=== PATIENT | female | born 1950 | race Caucasian/White ===

== ENCOUNTER → 2016-08-19 | Outpatient (CLI) | payer MEDICARE, OTHER ==
[2015-09-13 04:00] VITALS: BP 134/88
[~2016-08-19] MED LIST: CA C1TAB35 PO; CALC-109 PO; CALC600T4 PO; CELE200C PO; CINN500C2 PO; FERR-26 PO; LACT1CAP8 PO; MAGN400C PO; MELO15TA23 PO; METR45CR2 TP; MULT-246 PO; OMEG1CAP27 PO; OMEG500C3 PO; OMEP40CA2 PO; OXYC-323 PO; POTA20TA12 PO; RANI150T2 PO; SIMV20TA3 PO; WARF2TAB7 PO
[2016-08-19 13:20] LABS: BASO # 0.1 x10^3/uL (0.0-0.2); BASO % 1 % (0-3); EOS % 1 % (0-3); HEMATOCRIT 42.3 % (36.0-47.0); HEMOGLOBIN 14.3 g/dL (12.0-15.5); LYMPH % 23 % (24-48); MEAN CORPUSCULAR HEMOGLOBIN 32 pg (25-35); MEAN CORPUSCULAR HGB CONC 34 g/dL (31-37); MEAN CORPUSCULAR VOLUME 96 fL (79-100); MONO % 15 % (0-9); NEUT % 61 % (31-73); PLATELET COUNT 246 x10^3/uL (140-400); RED BLOOD COUNT 4.41 x10^6/uL (3.50-5.40); RED CELL DISTRIBUTION WIDTH 14.3 % (11.5-14.5); WHITE BLOOD COUNT 8.7 x10^3/uL (4.0-11.0)
--- NOTE | 2016-08-19 13:24 | EKG ---
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
[2016-08-19 13:32] LABS: INR 0.9 (0.8-1.1)
[2016-08-19 13:46] LABS: ALBUMIN 3.3 g/dL (3.4-5.0); CALCIUM 9.1 mg/dL (8.5-10.1); CREATININE 0.5 mg/dL (0.6-1.0); GFR 122.7; POTASSIUM 3.7 mmol/L (3.5-5.1)
--- NOTE | 2016-08-19 14:20 | RAD ---
Indication preop. Anticipated left knee replacement. PA and lateral views of the chest were obtained and are compared to a study 2 years ago. Heart size is unchanged. Slightly tortuous thoracic aorta is noted appearing similar. There is no acute parenchymal infiltrate. There has not been a significant change. Hiatus hernia is noted. There has been some increase in wedging of mid and lower thoracic vertebral body segments relative to the previous exam and there has been slight increase in the patient's kyphosis. Mild scoliosis is noted. IMPRESSION: Chronic changes in the chest. No acute finding seen
[2016-08-19 14:32] LABS: BILIRUBIN,URINE NEGATIVE (NEG); GLUCOSE,URINE NEGATIVE (NEG); NITRITE,URINE NEGATIVE (NEG); PROTEIN,URINE NEGATIVE (NEG-TRACE); UROBILINOGEN,URINE 0.2 mg/dL (0.2 mg/dL)
[2016-08-19 14:50] LABS: BACTERIA,URINE FEW /HPF (0-FEW); RBC,URINE 0 /HPF (0-2); WBC,URINE 0 /HPF (0-4)
[2016-08-19 14:51] LABS: SQUAMOUS EPITHELIAL CELL,UR OCC /LPF
== END | disposition home or self-care (01) ==
LOC: SURGPAT 12:40
PROVIDERS: ATTEND Orthopaedic Surgery
DX: Z01.818 Encounter for other preprocedural examination (principal)
CPT/HCPCS: 36415; 71020; 80048; 81001; 82040; 83036; 85027; 85610; 85651; 85730; 87086; 87641; 93005

== ENCOUNTER 2016-09-09 07:10 | Inpatient (IN) | payer MEDICARE, OTHER ==
--- NOTE | 2016-09-08 11:35 | PDOC1 ---
History and Physical Date of Admission Date of Admission DATE: 09/09/16 Identification/Chief Complaint Chief Complaint left knee osteoarthritis pain Problems: Source Source: Chart review History of Present Illness History of Present Illness Lisette is a 66 year old female who presents today for management of her left knee osteoarthritis. She has previously had her right knee replaced in August of 2014, which is doing very well. Since her last visit, she has been going to physical therapy, which she states helped her range of motion and strength. However, she is still very interested in surgery as she says her right knee is much better than her left and she knows it will only get worse over time. She has been exercising regularly. Also, she states that after surgery she does not want Percocet as that gave her bowel problems for about a year afterwards. She prefers Tylenol. Past Medical History Cardiovascular: No pertinent hx Pulmonary: No pertinent hx GI: No pertinent hx Past Surgical History Past Surgical History: Total knee replacement (right - 09/12/14), Hysterectomy Family History Family History: No Significant Social History Smoke: No ALCOHOL: none Drugs: None Current Medications Current Medications Active Scripts Active Reported Probiotic (Lactobacillus Combo No.11) 1 Each Cap.sprink 1 Each PO DAILY Meloxicam 15 Mg Tablet 1 Tab PO DAILY Ranitidine Hcl 150 Mg Tablet 1 Tab PO BID Calcium Citrate Plus Tablet (Ca Citrate/Mgox/Vit D3/B6/Min) 1 Each Tablet 1 Each PO DAILY Multi-Vitamin Daily (Multivitamin) 1 Each Tablet 1 Each PO DAILY Fish Oil 1,000 Mg Softgel ([place]-3 Fatty Acids/Fish Oil) 1 Each Capsule 1 Each PO DAILY Cinnamon (Cinnamon Bark) 500 Mg Capsule 500 Mg PO DAILY Metrocream (Metronidazole) 45 Gm Cream..g. 45 Gm TP DAILY Potassium Chloride 20 Meq Tab.er.prt 20 Meq PO DAILY Simvastatin 20 Mg Tablet 20 Mg PO HS Allergies Allergies: Coded Allergies: Penicillins (Verified Allergy, Intermediate, RASH, 08/19/16) erythromycin base (Verified Allergy, Intermediate, RASH, 08/19/16) influenza virus vaccine, specific (Verified Allergy, Intermediate, Nausea and Vomiting, 08/19/16) nickel (Verified Allergy, Intermediate, Rash, 08/19/16) Physical Exam General: Alert, Oriented X3, Cooperative, No acute distress HEENT: Atraumatic, EOMI Lungs: Normal air movement Heart: RRR Abdomen: Soft Extremities: No clubbing, No cyanosis, Normal pulses, Other (LEFT KNEE: shows her mildly antalgic gait. There is normal alignment. No masses. No detectable effusion. Tenderness on the joint lines. Range of motion is 0-120 degrees. There is crepitus with range of motion, and pain at the extremes of motion. The knee is stable to varus and valgus stress without subluxation or laxity. Muscle strength is normal (5/5) for quadriceps and hamstrings, and muscle tone is normal. The skin is normal with no scars, rashes, lesions or ulcers. Light touch sensation is intact. No edema and no varicosities. Dorsalis pedis pulse is intact and capillary refill is normal. ) Skin: No rashes, No breakdown, No significant lesion Neuro: Normal speech, Sensation intact Psych/Mental Status: Mental status NL, Mood NL VTE Prophylaxis Ordered VTE Prophylaxis Devices: Yes VTE Pharmacological Prophylaxi: Yes Assessment/Plan Assessment/Plan Left knee osteoarthritis. She is 66 years old. She has osteoarthritis of the left knee. She has seen improvement with physical therapy for her range of motion. She is pleased with her right total knee arthroplasty. She is very active. We discussed whether she should proceed with left total knee arthroplasty versus delay surgery. At this point, her health is good, she is 66 years old, but she has symptomatic left knee osteoarthritis. There were be a benefit to proceed now, in that her health is not likely to improve if we wait several more years to consider knee replacement. The left knee osteoarthritis is not likely to improve over time, and arthritis is predicted to worsen over the years. I think it would be to her benefit to proceed with left total knee arthroplasty now while she is healthy and strong, with many years to benefit from the knee arthroplasty, with low risk of need for revision. We discussed the potential risks of infection, neurovascular injury, bleeding, blood clots, need for revision surgery, or other potential surgical or anesthetic complications. All of her questions about surgery were answered and she desires to proceed. On her other knee. She has Oxinium due to metal sensitivity. Her other knee has Legion Oxinium size 2 femur, size 2 tibia, and 29 mm patella. She requests Tylenol for postoperative pain due to bowel problems with Percocet. She would like to proceed. We will request medical clearance from her PCP, Ellyn Shaffer. PRUDENCE RODRIGUEZ Sep 08, 2016 11:34
[~2016-09-09] VITALS: Ht 147.3 cm; Wt 65.8 kg
[2016-09-09] VITALS (8 sets, daily range): BP systolic 92–126; BP diastolic 59–77
[~2016-09-09 07:10] MED LIST changes: +CLINDAMYCIN 600MG PREMIX 50 ML IV PRN; +HYDROcodone/APAP 7.5/325MG 1 TAB TABLET PO PRN; +HYDROmorphone 2 MG/ML VIAL IV PRN; +IV RINGERS,LACTATED 1000ML 1,000 ML IV SCH; +LIDOCAINE 1% 1 ML SYRINGE. ID PRN; +MELOXICAM 7.5 MG TABLET PO PRN; +MORPHINE SULFATE 5 MG, KETOROLAC TROMETHAMINE 30 MG, ROPIVacaine 0.5% PF 60 ML, EPINEPH... INT ART ONE; +ONDANSETRON PF 4 MG/2 ML VIAL. IV PRN; +PROCHLORPERAZINE 10 MG/2 ML VIAL. IV PRN; +TRANEXAMIC ACID 1,000 MG in IV NS 50ML -- 1ST BAG INJ ONE; +fentaNYL PF VIAL 100 MCG/2 ML VIAL IV PRN
[2016-09-09] MEDS ORDERED: LISI10TA2 PO (07:58)
[2016-09-09] MEDS ORDERED: CLINDAMYCIN PREMIX 600 MG/50 ML BAG. IV ONE (08:00)
[2016-09-09] MEDS ORDERED: TRANEXAMIC ACID 1,000 MG in IV NS 50ML -- 2ND BAG INJ ONE (08:00)
[2016-09-09] MEDS ORDERED: ACETAMINOPHEN 500 MG TABLET PO ONE (08:14)
[2016-09-09] MEDS ORDERED: fentaNYL PF VIAL 250 MCG/5 ML VIAL ONE (08:19)
[2016-09-09] MEDS ORDERED: LIDOCAINE 2% PF Vial for OR 5 ML VIAL. ONE (08:20)
[2016-09-09] MEDS ORDERED: PROPOFOL 20 ML IV ONE (08:20)
[2016-09-09] MEDS ORDERED: DEXAMETHASONE SOD PHOS 20 MG/5 ML VIAL. ONE (08:20)
[2016-09-09] MEDS ORDERED: ONDANSETRON PF 4 MG/2 ML VIAL. ONE (08:20)
[2016-09-09] MEDS ORDERED: SCOPOLAMINE 1.5MG PATCH. TD ONE ×2 (08:26→08:30)
[2016-09-09 09:08] LABS: PROTHROMBIN TIME PATIENT 12.4 SEC (11.7-14.0)
[2016-09-09] MEDS ORDERED: VANCOMYCIN 1 GM VIAL. ONE (09:28)
[2016-09-09] MEDS ORDERED: TOBRAMYCIN POWDER 1.2 GM VIAL. ONE (09:29)
[2016-09-09] MEDS ORDERED: SEVOFLURANE > 120 MINUTES. IH ONE (10:13)
[2016-09-09] MEDS ORDERED: PHENYLEPHRINE in 0.9% NACL PF 1 MG/10 ML DISP.SYRIN. IV ONE (10:13)
[2016-09-09] MEDS ORDERED: ceFAZolin 2GM PREMIX 2 GM/50 ML BAG IV ONE (10:15)
[2016-09-09] MEDS ORDERED: ePHEDrine PF IN SALINE 50 MG/5 ML DISP.SYRIN IV ONE (10:24)
--- NOTE | 2016-09-09 12:02 | PDOC4 ---
Operative Note Operative Note Date of Procedure: September 09, 2016 Pre-Op Diagnosis: Osteoarthritis left knee Post-Op Diagnosis: Osteoarthritis left knee Procedure: left total knee arthroplasty Surgeon: Dominga Hidalgo MD Carton Machine Operator: Kerry Yoo PA-C Anesthesia: General EBL: 100 mL Specimens Obtained: left knee bone and soft tissue Complications: none Implant Company: [employer] Drains: Hemovac plus pain catheter Tourniquet time: 41 Minutes Tourniquet Pressure: 350 mm Hg Indications for Procedure: Arthritis pain unrelieved by nonoperative management. Findings: Severe osteoarthritis with bone on bone contact medially Implants used: Size 2 left bicruciate stabilized Journey II BCS Oxinium femoral component, size 3 left Journey nonporous tibial baseplate, size 3-4 10 mm left Journey II BCS XLPE articular insert, 32 mm oval Mikala II resurfacing patellar component Procedure in Detail: The patient was identified in the preoperative holding area, and the correct left extremity was marked by me. The patient was taken to the operating room where the patient was anesthetized by the Department of Anesthesia. Preoperative antibiotics were given intravenously. Tranexamic acid 1 g was given intravenously for intraoperative hemostasis. A "time-out" procedure was performed. The patient was positioned supine on the operative table with a tourniquet on the upper thigh. The limb was thoroughly prepped and draped in sterile fashion. An impervious stockinet and adhesive drape were used such that the skin was entirely covered. An Gray leg anne was used. The operating team wore personal exhaust-ventilated hoods. The tourniquet was inflated to 350 mm Hg. A midline skin incision was made with a scalpel using the patella and tibial tubercle as landmarks. Electrocautery was used for hemostasis. My assistant professor of drama used rake retractors. A medial parapatellar arthrotomy incision was used with extension into the distal quadriceps tendon. The patella was retracted laterally and Hohmann retractors were now used by my assistant professor of drama. Excess synovium, the menisci, and the cruciate ligaments were resected sharply. The patella was assessed and excess synovium and osteophytes around the patellar articulation were removed. The patella was measured with a caliper, cut freehand with a saw using caliper measurements, sized, and then drilled for an oval three-pegged patella component. Periarticular injection was used in the suprapatellar pouch and distal quadriceps muscle. Amanda's line was assessed on the femur. An intra-medullary 5 degree cutting guide was pinned to the femur, and a distal femoral cut was made with an oscillating saw. An additional 2 mm resection was used due to the deep femoral sulcus, and deficient condyle. My assistant professor of drama held Hohmann retractors and an [facility] retractor to protect the medial and lateral collateral ligaments, the patellar tendon, the skin and the other soft tissues. An anterior referencing guide was applied with external rotation of 3 degrees to match [place] line. A 5-in-1 Journey II cutting guide was then applied and pinned to the femur. The posterior, anterior, and all chamfer cuts were made with the oscillating saw. An extramedullary guide was pinned to the tibia and rotational alignment and the planned resection thickness assessed. An external alignment amber was used to verify the planned cut in the varus-valgus plane and regarding posterior slope referencing the tibial tubercle, the tibial shaft, the ankle joint, and the second metatarsal. The upper tibia was cut made with an oscillating saw. My assistant professor of drama held Hohmann retractors and a posterior cruciate ligament retractor to protect the medial and lateral collateral ligaments, the patellar tendon, the skin, the peroneal nerve and the other soft tissues. The upper tibia was sized with a trial baseplate. The posterior compartment was cleared of osteophytes and loose bodies, and posterior capsule released. Sherita-articular injection was used in the posterior compartment. The box cut for a posterior stabilized component was made. A preliminary reduction was performed with a trial femur, trial tibial baseplate and trial polyethylene. Soft-tissue balancing was now performed, and extension and rotation of the alignments was checked using a guide amber in the tibial trial and a guide pin in the femur. No additional releases were required. The stability was assessed using different thicknesses of tibial articular surface to find satisfactory stability and good range of motion. The rotation of the tibial component was marked on the upper tibia. Final trial reduction was now performed verifying patella tracking and tibiofemoral stability and alignment. The tibia preparation was completed with a drill, saw, and fin punch at the previously noted rotation. The final implants were verified and opened. Outer gloves were changed by the operating team. The bone cuts were washed thoroughly with the Localbase InterPulse device and dried. Two packages of Rally HV bone cement were mixed in powdered form with 1 gm of Vancomycin and 1.2 g tobramycin , then vacuum-mixed with the monomer, and placed into a cement gun. The cut surfaces of the bone were thoroughly washed with Interpulse saline, and then dried with Cloud-tip suction and with laparotomy sponges for cement interdigitation. The final components were cemented into place. The knee was kept at full extension while the cement hardened, and excess cement was removed. Tranexamic acid 1 g was redosed intravenously for additional intraoperative hemostasis. A final periarticular injection was used for pain relief. The tourniquet was released, and electrocautery was used for hemostasis. A final check of [id number] and stability was made, and the polyethylene implant final size was chosen. The polyethylene implant was secured to the tibial baseplate, and the knee was reduced a final time. Thorough irrigation was used. Hemovac and pain catheter were used.The arthrotomy was closed with interrupted [id number] #1 PDS suture. The arthrotomy incision was then run with #1 STRATAFIX Symmetric PDS Plus Knotless suture. The subcutaneous tissues were closed with #2-0 Vicryl by my assistant professor of drama. The skin was reapproximated with STRATAFIX Spiral MONOCRYL Plus Knotless suture by my assistant professor of drama. The skin incision was then covered and reinforced with Dermabond Prineo mesh skin closure dressing. A bulky sterile gauze dressing was applied. Needle and sponge counts were correct. DOMINGA HIDALGO MD Sep 09, 2016 12:02
[2016-09-09] MEDS ORDERED: PROCHLORPERAZINE 5 MG TABLET. PO PRN (12:15)
[2016-09-09] MEDS ORDERED: oxyCODONE/APAP 7.5/325 1 TAB TABLET PO PRN (12:15)
[2016-09-09] MEDS ORDERED: 0.9 % SODIUM CHLORIDE 10 ML DISP.SYRIN. IV PRN (12:15)
[2016-09-09] MEDS ORDERED: traMADol 50 MG TABLET PO PRN ×2 (12:15)
[2016-09-09] MEDS ORDERED: oxyCODONE/APAP 5/325 1 TAB TABLET PO PRN (12:15)
[2016-09-09] MEDS ORDERED: MORPHINE SULFATE 2 MG/ML DISP.SYRIN. IV PRN (12:15)
[2016-09-09] MEDS ORDERED: DEXTROSE 50% 25 GM / 50ML DISP.SYRIN. IV PRN (12:15)
[2016-09-09] MEDS ORDERED: HYDROcodone/APAP 10/325 1 TAB TABLET PO PRN (12:15)
[2016-09-09] MEDS ORDERED: PROCHLORPERAZINE 10 MG/2 ML VIAL. IV PRN (12:15)
[2016-09-09] MEDS ORDERED: METOCLOPRAMIDE HCL 10 MG/2 ML VIAL. IV PRN (12:15)
[2016-09-09] MEDS ORDERED: ZOLPIDEM 5 MG TABLET. PO PRN (12:15)
[2016-09-09] MEDS ORDERED: MORPHINE SULFATE 10 MG/ML VIAL. IV PRN (12:15)
[2016-09-09] MEDS ORDERED: diphenhydrAMINE 50 MG/ML VIAL IV PRN (12:15)
[2016-09-09] MEDS ORDERED: ACETAMINOPHEN 325 MG TABLET. PO PRN (12:15)
[2016-09-09] MEDS ORDERED: fentaNYL PF VIAL 100 MCG/2 ML VIAL IV PRN ×2 (12:15)
[2016-09-09] MEDS ORDERED: MORPHINE SULFATE 4 MG/ML DISP.SYRIN. IV PRN ×2 (12:15)
[2016-09-09] MEDS: fentaNYL PF VIAL 100 MCG/2 ML VIAL IV PRN ×2 (12:29→12:36)
[2016-09-09] MEDS: MORPHINE SULFATE 2 MG/ML DISP.SYRIN. IV PRN ×2 (12:46→13:00)
--- NOTE | 2016-09-09 12:55 | RAD ---
Left knee radiograph 09/09/2016 at 1245 hours Indication: Postoperative evaluation of the left knee. Comparison: None available Technique: AP and lateral views of the left knee are provided. Findings: A left total knee arthroplasty is identified with femoral and tibial components in expected alignment. No periprosthetic lucency is identified. Subcutaneous gas and soft tissue swelling compatible with recent postoperative state. Drainage catheter is identified overlying the lateral knee. No acute fracture or dislocation. Impression: Left total knee arthroplasty with expected postoperative changes.
[2016-09-09] MEDS: SENNOSIDES/DOCUSATE 8.6/50MG TABLET. PO SCH (14:00)
[2016-09-09] MEDS: POTASSIUM CHLORIDE 20 MEQ TABLET.ER. PO SCH (15:00)
[2016-09-09] MEDS ORDERED: metroNIDAZOLE 0.75% TOPICAL 1 APP TUBE TP SCH (15:00)
[2016-09-09] MEDS: CALCIUM CARB/VIT D3 500/200 TABLET. PO SCH (15:00)
[2016-09-09] MEDS: LISINOPRIL 10 MG TABLET PO SCH (15:00)
[2016-09-09] MEDS: LACTOBACILLUS ACIDOPH & BULGAR 1 TABLET. PO SCH (16:10)
[2016-09-09] MEDS: FERROUS SULFATE 325 MG TABLET. PO SCH (17:00)
[2016-09-09] MEDS: IV DEXTROSE 5 %-0.45 % NACL 1,000 ML IV SCH ×2 (17:08→22:12)
[2016-09-09] MEDS: CALCIUM CARBONATE 500 MG TAB.CHEW PO PRN (19:52)
[2016-09-09] MEDS: FAMOTIDINE 20 MG TABLET. PO SCH (19:52)
[2016-09-09] MEDS: SIMVASTATIN 20 MG TABLET PO SCH (21:16)
[2016-09-09] MEDS: ASPIRIN ENTERIC COATED 325 MG TABLET.DR. PO SCH (21:16)
[2016-09-09] MEDS: HYDROcodone/APAP 7.5/325MG 1 TAB TABLET PO PRN (21:16)
[2016-09-09] MEDS ORDERED: VANCOMYCIN 1 GM in IV NORMAL SALINE 250ML 250 ML IV ONE (23:00)
[2016-09-10 02:57] VITALS: BP 106/65
[2016-09-10] MEDS ORDERED: MAGNESIUM HYDROXIDE 2,400 MG/30 ML ORAL.SUSP. PO PRN (06:00)
[2016-09-10 06:28] VITALS: BP 86/55
[2016-09-10 07:40] VITALS: BP 109/72
[2016-09-10] MEDS: IV DEXTROSE 5 %-0.45 % NACL 1,000 ML IV SCH ×4 (08:12→18:50)
[2016-09-10] MEDS: FERROUS SULFATE 325 MG TABLET. PO SCH ×2 (08:39→17:14)
[2016-09-10] MEDS: LACTOBACILLUS ACIDOPH & BULGAR 1 TABLET. PO SCH (08:39)
[2016-09-10] MEDS: ASPIRIN ENTERIC COATED 325 MG TABLET.DR. PO SCH ×2 (08:40→20:47)
[2016-09-10] MEDS: SENNOSIDES/DOCUSATE 8.6/50MG TABLET. PO SCH (08:40)
[2016-09-10] MEDS: CALCIUM CARB/VIT D3 500/200 TABLET. PO SCH (08:40)
[2016-09-10] MEDS: FAMOTIDINE 20 MG TABLET. PO SCH ×2 (08:40→20:47)
[2016-09-10] MEDS: MULTIVITAMIN with MINERAL TABLET. PO SCH (08:40)
[2016-09-10] MEDS: MELOXICAM 7.5 MG TABLET PO SCH (08:40)
[2016-09-10] MEDS: POTASSIUM CHLORIDE 20 MEQ TABLET.ER. PO SCH (08:40)
[2016-09-10] MEDS: HYDROcodone/APAP 7.5/325MG 1 TAB TABLET PO PRN ×3 (08:41→17:16)
[2016-09-10] MEDS: metroNIDAZOLE 0.75% TOPICAL 1 APP TUBE TP SCH (08:46)
[2016-09-10] MEDS ORDERED: NON FORMULARY ITEM (Cinnamon Bark (Cinnamon) 500 MG) PO SCH (09:00)
[2016-09-10] MEDS: LISINOPRIL 10 MG TABLET PO SCH (09:00)
--- NOTE | 2016-09-10 10:11 | PDOC ---
PROGRESS NOTES Subjective Subjective No complaints. Pt states she feels great and would like to go home tomorrow. Objective Vital Signs Vital Signs Date Time Temp Pulse Resp B/P (MAP) Pulse Ox O2 Delivery O2 Flow Rate FiO2 09/10/16 08:41 16 Room Air 09/10/16 07:40 78 109/72 (84) 09/10/16 06:28 98.1 93 98.1 09/10/16 02:57 2.0 Physical Exam Dressing dry. Pain catheter and Hemovac in place. Good dorsiflexion and plantarflexion of the foot with no evidence of neurovascular injury or DVT. Calves are soft and non-tender. Negative Homans. Peripheral pulses and light touch sensation intact. Labs Laboratory Tests Test 09/09/16 08:05 09/10/16 04:00 Prothrombin Time 12.4 SEC (11.7-14.0) Prothromb Time International Ratio 1.0 (0.8-1.1) Activated Partial Thromboplast Time 29 SEC (24-38) Hemoglobin 12.0 g/dL (12.0-15.5) Laboratory Tests Test 09/10/16 04:00 Hemoglobin 12.0 g/dL (12.0-15.5) Imaging Postoperative x-rays reviewed by me, showing satisfactory total knee replacement , with no apparent complications. Assessment Assessment POD #1 TKA Problems: Plan Plan of Care Continue POC including DVT prophylaxis and physical therapy. PRUDENCE RODRIGUEZ Sep 10, 2016 10:11
[2016-09-10 11:40] VITALS: BP 119/73
[2016-09-10] MEDS ORDERED: BISACODYL 10 MG SUPP.RECT. PR PRN (16:00)
[2016-09-10 18:07] VITALS: BP 118/73
[2016-09-10] MEDS: CALCIUM CARBONATE 500 MG TAB.CHEW PO PRN (19:00)
[2016-09-10] MEDS: SIMVASTATIN 20 MG TABLET PO SCH (20:47)
[2016-09-11] MEDS: HYDROcodone/APAP 7.5/325MG 1 TAB TABLET PO PRN (05:39)
[2016-09-11 06:12] VITALS: BP 121/76
[2016-09-11 07:22] LABS: HEMATOCRIT 35.8 % (36.0-47.0)
[2016-09-11] MEDS: LACTOBACILLUS ACIDOPH & BULGAR 1 TABLET. PO SCH (08:07)
[2016-09-11] MEDS: FERROUS SULFATE 325 MG TABLET. PO SCH (08:07)
[2016-09-11] MEDS: POTASSIUM CHLORIDE 20 MEQ TABLET.ER. PO SCH (08:08)
[2016-09-11] MEDS: ASPIRIN ENTERIC COATED 325 MG TABLET.DR. PO SCH (08:08)
[2016-09-11] MEDS: MELOXICAM 7.5 MG TABLET PO SCH (08:09)
[2016-09-11] MEDS: FAMOTIDINE 20 MG TABLET. PO SCH (08:09)
[2016-09-11] MEDS: LISINOPRIL 10 MG TABLET PO SCH (08:09)
[2016-09-11] MEDS: CALCIUM CARB/VIT D3 500/200 TABLET. PO SCH (08:09)
[2016-09-11] MEDS: SENNOSIDES/DOCUSATE 8.6/50MG TABLET. PO SCH (08:10)
[2016-09-11] MEDS: MULTIVITAMIN with MINERAL TABLET. PO SCH (08:10)
[2016-09-11] MEDS: metroNIDAZOLE 0.75% TOPICAL 1 APP TUBE TP SCH (08:18)
--- NOTE | 2016-09-11 12:32 | PDOC ---
PROGRESS NOTES Subjective Subjective Doing well. Only reports mild pain increase from yesterday. Objective Vital Signs Vital Signs Date Time Temp Pulse Resp B/P (MAP) Pulse Ox O2 Delivery O2 Flow Rate FiO2 09/11/16 08:09 105 121/76 09/11/16 07:20 Room Air 09/11/16 06:12 98.3 18 94 98.3 09/10/16 02:57 2.0 Physical Exam Expected swelling. Pain catheter and drain have been removed. Incision with spotty drainage only from drain sites. Prineo mostly intact and dry, reinforced in one area with additional Dermabond. Calf soft and nontender. Negative Homans sign. Good AROM ankle. Peripheral pulses and light touch sensation intact. Labs Laboratory Tests Test 09/10/16 04:00 09/11/16 07:00 Hemoglobin 12.0 g/dL (12.0-15.5) 12.0 g/dL (12.0-15.5) Hematocrit 35.8 % (36.0-47.0) Mean Corpuscular Hemoglobin Concent 34 g/dL (31-37) Laboratory Tests Test 09/11/16 07:00 Hemoglobin 12.0 g/dL (12.0-15.5) Hematocrit 35.8 % (36.0-47.0) Mean Corpuscular Hemoglobin Concent 34 g/dL (31-37) Imaging X-rays independently reviewed by me and show satisfactory TKA alignment and no apparent complications. Assessment Assessment POD 2 TKA Problems: Plan Plan of Care Continue DVT prophylaxis and physical therapy. Planned discharge today. Office F/U in 10-14 days. DOMINGA ALEJANDRO MD Sep 11, 2016 12:32
--- NOTE | 2016-09-11 12:32 | PDOC3 ---
Discharge Summary Visit Information Date of Admission: Sep 09, 2016 Date of Discharge: Sep 11, 2016 Admitting Diagnosis: left knee osteoarthritis pain Brief Hospital Course Allergies Allergies Coded Allergies Type Severity Reaction Last Updated Verified Penicillins Allergy Intermediate RASH 09/09/16 Yes erythromycin base Allergy Intermediate RASH 09/09/16 Yes nickel Allergy Intermediate Rash 09/09/16 Yes influenza virus vaccine, specific Adverse Reaction Intermediate Nausea and Vomiting 09/09/16 Yes Vital Signs Vital Signs Date Time Temp Pulse Resp B/P (MAP) Pulse Ox O2 Delivery O2 Flow Rate FiO2 09/11/16 08:09 105 121/76 09/11/16 07:20 Room Air 09/11/16 06:12 98.3 18 94 98.3 Lab Results Laboratory Tests Test 09/10/16 04:00 09/11/16 07:00 Hemoglobin 12.0 g/dL (12.0-15.5) 12.0 g/dL (12.0-15.5) Hematocrit 35.8 % (36.0-47.0) Mean Corpuscular Hemoglobin Concent 34 g/dL (31-37) Laboratory Tests Test 09/11/16 07:00 Hemoglobin 12.0 g/dL (12.0-15.5) Hematocrit 35.8 % (36.0-47.0) Mean Corpuscular Hemoglobin Concent 34 g/dL (31-37) Brief Hospital Course 66 year old female who presented with left knee osteoarthritis, for elective total knee arthroplasty. The patient underwent left total knee arthroplasty under general anesthesia the day of admission. Perioperative antibiotics and DVT prophylaxis were used. Postoperatively physical therapy and case management were consulted. The patient progressed and is stable for discharge. Discharge Information Condition at Discharge: Stable Follow Up: Weeks (2) Disposition/Orders: D/C to Home Scheduled Ca Citrate/Mgox/Vit D3/B6/Min (Calcium Citrate Plus Tablet), 1 EACH PO DAILY, ( Reported) Cinnamon Bark (Cinnamon), 500 MG PO DAILY, (Reported) Lactobacillus Combo No.11 (Probiotic), 1 EACH PO DAILY, (Reported) Lisinopril (Lisinopril), 1 TAB PO DAILY, (Reported) Meloxicam (Meloxicam), 1 TAB PO DAILY, (Reported) Metronidazole (Metrocream), 45 GM TP DAILY, (Reported) Multivitamin (Multi-Vitamin Daily), 1 EACH PO DAILY, (Reported) [place]-3 Fatty Acids/Fish Oil (Fish Oil 1,000 Mg Softgel), 1 EACH PO DAILY, ( Reported) Potassium Chloride (Potassium Chloride), 20 MEQ PO DAILY, (Reported) Ranitidine Hcl (Ranitidine Hcl), 1 TAB PO BID, (Reported) Simvastatin (Simvastatin), 20 MG PO HS, (Reported) Patient Instructions Patient Instructions Patient Instructions Continue to WBAT with walker. Keep dressing dry and intact. F/U with [facility] in 10-14 days. Call for appointment. Physical therapy for TKA Continue DVT prophylaxis. PRUDENCE RODRIGUEZ Sep 11, 2016 12:32
[2016-09-11 13:00] VITALS: BP 119/71
--- NOTE | 2016-09-11 15:36 | PATHOLOGY ---
PATHOLOGY REPORT * * * * * * * * FINAL DIAGNOSIS: Bone and soft tissue "left knee bone and tissue", joint resection: - Degeneration of cartilage consistent with degenerative joint disease. (SHA:kahlil; 09/11/2016) REPORT ELECTRONICALLY SIGNED BY: Gigi Helton M.D. DATE/TIME: 09/11/2016 15:35 * * * * * * * * GROSS PATHOLOGY: Received in formalin labeled "Lisette Montelongo, left knee bone and tissue," are multiple segments of bone, including tibial plateau, measuring 10.5 x 8.2 x 2.7 cm in aggregate dimensions admixed with soft tissue; meniscus is not present. The specimen shows focal eburnation of the articular surfaces. Walking Dragline Oiler sections of bone and soft tissue are submitted in cassette A1, following decalcification. (CAA; 09/10/2016) INITIAL CPT CODE(S): A; 12464, 83172 Professional services performed [place] [facility] [place] [address] Technical services performed by [facility] at [address] [place] [address]. SPECIMEN(S) RECEIVED: A.Left knee bone and tissue CLINICAL HISTORY: Left knee osteoarthritis PATIENT: LISETTE MONTELONGO /AGE: 12 1950 (Age: 66) PATIENT #: [id number] ALT CASE #: SPECIMEN COLLECTION DATE: 09/09/2016 SPECIMEN RECEIVED DATE: 09/09/2016 [facility] - [address] [place] [address] - PHONE: [phone] * * * END OF REPORT * * *
== END 2016-09-11 14:32 | disposition home or self-care (01) | DRG 470 ==
LOC: OPSVCIP 07:33 → OBSVTOIN 12:15 → 4 SOUTHEST 13:45
PROVIDERS: ADMIT Orthopaedic Surgery; ATTEND Orthopaedic Surgery
PROC: 0SRD0J9 Replacement of Left Knee Joint with Synthetic Substitute, Cemented, Open Approach (ICD-10-PCS; principal; 2016-09-09 09:45)
DX: M17.12 Unilateral primary osteoarthritis, left knee (principal); Z90.710 Acquired absence of both cervix and uterus; Z88.1 Allergy status to other antibiotic agents; Z88.0 Allergy status to penicillin; Z88.7 Allergy status to serum and vaccine; Z88.8 Allergy status to other drugs, medicaments and biological substances
CPT/HCPCS: 36415; 73560; 85014; 85018; 85610; 85730; 86850; 86900; 86901; G0378; G0379; J0171; J0690; J0780; J1100; J1885; J2001; J2270; J2370; J2405; J2704; J2795; J3010; J3260; J3370; J3490; J7030; J7050; J7120; 97150; 97530; 97535; C1769